=== PATIENT | male | born 1980 | race Caucasian/White ===

== ENCOUNTER 2017-03-20 09:31 | Emergency (ER) | payer OTHER ==
[~2017-03-20] VITALS: Ht 172.7 cm; Wt 107.0 kg
[2017-03-20 09:48] VITALS: BP 130/80; PULSE 64; RESP 20; O2SAT 96
[2017-03-20 10:11] LABS: BASOPHILS % (AUTO) 0.6 % (0-3); EOSINOPHILS % (AUTO) 3.4 % (0-5); MONOCYTES % (AUTO) 6.7 % (4-12); Mean Corpuscular Hemoglobin 31.1 pg (27.0-35.0); Mean Corpuscular Volume 87.8 fL (81-100); NEUTROPHILS % (AUTO) 53.4 % (40-74); Platelet Count 199 bil/L (150-400)
[2017-03-20 10:22] LABS: Magnesium 1.9 mg/dL (1.6-2.6)
[2017-03-20] MEDS ORDERED: Ondansetron 2 mg/mL 2 mL Inj IVPUSH ONE (10:40)
[2017-03-20] MEDS: HYDROmorphone 0.5 mg/0.5 mL iSecure Syringe IVPUSH PRN ×2 (10:43→10:51)
--- NOTE | 2017-03-20 10:46 | ED.REPORT ---
HPI-Abd Pain M Under 40 Date of Service March 20, 2017 ED Provider: Dr. Franz 36 y/o male with no reported hx presents to the ED complaining of non-radiating dull abdominal pain, onset 4 hours ago. Associated sx include severe cough. He has never experienced similar sx before. Nursing Notes Stated Complaint: ABD PAIN Chief Complaint: Male Abdominal Pain Nursing Notes Reviewed: Yes ([employer], meds not reconciled) Allergies: Coded Allergies: No Known Allergies (Unverified , 03/20/17) General Time Seen by MD: 10:45 Chief Complaint Abdominal pain Hx Obtained From: Patient Arrived By: Walk-in Sudden in Onset?: Yes Onset Occurred: 1 - 4 hours ago Symptom Duration: Since onset Location: : Periumbilical Quality: Painful Radiation: : Does not radiate Severity: Current: Severe Severity: Maximum: Severe Recent Healthcare: No recent doctor visit Similar Sx Previous: No Past Medical History Past Medical History none reported Past Surgical History none reported Smoking History Unknown if Ever Smoker Social History Alcohol Use: "Social" Other Social History: Good social support Ambulatory Status Independent Review of Systems Respiratory: Reports: Non-productive cough GI: Reports: Abdominal pain Complete sys rev & neg: except as marked. Physical Exam Initial Vital Signs Vital Signs (First) Date Time Temp Pulse Resp B/P Pulse Ox O2 Delivery O2 Flow Rate FiO2 03/20/17 09:48 35.8 64 20 130/80 96 Room Air Initial VS: Reviewed, Vital signs normal Head / Eyes: Atraumatic, Normocephalic, PERRL Neck: Supple, Non-tender, Full range of motion Extremities: Vascular intact, Neuro intact, No swelling, No tenderness Skin: Warm, Dry, No cyanosis Neurologic: Alert, Oriented, Nonfocal General/Constitutional: Awake, Alert, Cooperative Distress / Hydration: Positive: Distress severe Respiratory / Chest: Atraumatic, Breath sounds NL, Breath sounds = bilat, No respiratory distress, No rales, No rhonchi, No wheezing Cardiovascular: Heart rate NL, Regular rhythm, Heart sounds NL, No gallop, No murmurs, No rubs Abdomen: Atraumatic Organomegaly / Mass / Hernia: Positive: Hernia umbilical Severe pain. Palpable two inch incarcerated umbilical hernia which was manually reduced Back: Atraumatic, Full range of motion Interpretation & Diagnostics Interpretation & Diagnostics: Pulmonary tech ultrasound report, reduced umbilical hernia Lab Results Interpretation Result Diagram: 03/20/17 1007 03/20/17 1007 Test 03/20/17 10:07 White Blood Count 4.9th/mm3 (3.8-10.1) Red Blood Count 5.41mil/mm3 (4.40-5.80) Hemoglobin 16.8g/dL (13.8-17.2) Hematocrit 47.5% (41.0-50.0) Mean Corpuscular Volume 87.8fL (81-100) Mean Corpuscular Hemoglobin 31.1pg (27.0-35.0) Mean Corpuscular Hemoglobin Concent 35.4% (32.0-37.0) Red Cell Distribution Width 12.8% (12.3-15.4) Platelet Count 199bil/L (150-400) Neutrophils (%) (Auto) 53.4% (40-74) Lymphocytes (%) (Auto) 35.7% (14-46) Monocytes (%) (Auto) 6.7% (4-12) Eosinophils (%) (Auto) 3.4% (0-5) Basophils (%) (Auto) 0.6% (0-3) Sodium Level 141mEq/L (134-144) Potassium Level 4.4mEq/L (3.5-5.2) Chloride Level 105mEq/L (97-108) Carbon Dioxide Level 22mmol/L (18-29) Blood Urea Nitrogen 14mg/dL (6-20) Creatinine 0.57mg/dL (0.76-1.27) Estimat Glomerular Filtration Rate 170mL/min (>59) Glucose Level 111mg/dL (60-99) Calcium Level 9.3mg/dL (8.5-10.1) Magnesium Level 1.9mg/dL (1.6-2.6) Total Bilirubin 0.8mg/dL (0.0-1.2) Aspartate Amino Transf (AST/SGOT) 34U/L (0-50) Alanine Aminotransferase (ALT/SGPT) 53U/L (0-44) Alkaline Phosphatase 55U/L (25-150) Total Protein 7.5g/dL (6.4-8.4) Albumin 4.4g/dL (3.4-5.0) Lipase 17U/L (13-60) Lab Results Interpretation: CBC normal CMP normal Re-Eval/Medical Decision Med Decision/Clinical Course This is a 36-year-old male who presents with acute periumbilical abdominal pain that started this morning. He has had a cough over the past few months, is not had prior history with a known umbilical hernia, seen at urgent care and referred to the ED due to severity of pain. The patient is in significant pain, not clinical exam has a palpable tense but small roughly 4 cm periumbilical hernia. I IV placed received titrated pain medicine and I was able to manually reduce the hernia with relief of symptoms. Ultrasound demonstrated complete reduction, but there is a sliding umbilical hernia present. Labs are normal. He is observed, he demonstrate no signs of bowel ischemia. Case discussed with the on-call surgeon to facilitate follow-up. The patient's and partner are counseled on the nature of umbilical hernias. Routine care, return precautions were reviewed. Patient's discharget asymptomatic in good condition Source of Hx: Old records Consultation : Referral / Consult Name: Amari Royal MD Consulted With: Surgeon Call Returned at: 12:16 Rn Admissions: Will see in office, Agrees with eval, Agrees with plan Note: Dr. Royal agrees with the plan and recommends the pt be discharged with instruction to follow up with him. Differential Diagnosis: Positive: Hernia (incarcerated umbilical), Negative: C. diff colitis, Diabetic ketoacidosis, Esophageal rupture, Esophagitis, Gastroenteritis, Sickle cell crisis, Stab wound abdomen, Trauma, abdominal Counseled Regarding: Diagnosis, Lab results, Need for follow-up, When/why to return to ED Patient Discharge & Departure Primary Impression: Incarcerated umbilical hernia Disposition: Home Discharge Condition All VS Reviewed: Yes Condition: Stable Referrals: [facility] Scribe Attestation Portions of this note were transcribed by Robby Novoa. I, Dr. Franz, personally performed the history, physical exam and medical decision-making;I reviewed and confirmed the accuracy of the information in the transcribed note. Signed by Ernie Guillaume. 03/20/17 1257 copies to: [facility] Murali Franz MD March 20, 2017 10:46 Robby Novoa March 20, 2017 10:54
[2017-03-20 11:47] VITALS: BP 111/69; PULSE 63; RESP 18; O2SAT 95
[2017-03-20 13:36] VITALS: BP 105/68; PULSE 59; RESP 18; O2SAT 97
--- NOTE | 2017-03-20 16:05 | DRSVH ---
PROCEDURE: US ABDOMEN, LIMITED ([id number]) INDICATIONS: inguina TECHNIQUE: Real-time focused scanning was performed of the abdomen, with image documentation. COMPARISON: None. FINDINGS: Reducible fat and bowel containing periumbilical hernia is present. IMPRESSION: Reducible periumbilical hernia. Dictated by: Daniel NARAYAN Interpreted: Meliza Sun MD on 03/20/2017 at 16:04 Transcribed by: KHANH on 03/20/2017 at 16:05 Approved by: Meliza Sun MD, PhD on 03/20/2017 at 16:35
== END 2017-03-20 13:30 | disposition home or self-care (01) ==
LOC: SED 09:31
DX: K42.0 Umbilical hernia with obstruction, without gangrene (principal)
CPT/HCPCS: 36415; 76705; 80053; 83690; 83735; 85025; 96374; 96375; 99285; J1170; J2405

== ENCOUNTER 2017-04-05 08:27 | Day surgery (SDC) | payer OTHER ==
[2017-04-05] VITALS (10 sets, daily range): BP systolic 105–121; BP diastolic 68–83; PULSE 67–83; RESP 13–17; O2SAT 92–96
[~2017-04-05] VITALS: Ht 172.7 cm; Wt 106.4 kg
--- NOTE | 2017-04-05 07:55 | PCM.HPANE ---
Patient Data Surgeon Admitting Provider: Attending Provider:Michael Elaine MD Primary Care Physician:Martin Other Provider:Durga Stratton Anesthesia Reason for Visit Umbilical Hernia Ht/WT & BMI Height (Feet): 5 Height (Inches): 8 Weight (Kilograms): 104.326 Body Mass Index 34.00 Allergies Coded Allergies: No Known Allergies (Unverified , 04/04/17) Past Anesthesia History Anesthesia History: Denies:: Abnormal Airway, Anesthesia Reactions, Difficult Intubation, Malignant Hyperthermia Diabetes History Hx Diabetes?: No MRSA MRSA: No Medications Hypertension Medication: No Home Meds Incl Beta Elkin: No No Active Prescriptions or Reported Meds History History of ENT Problems?: No HEENT History: Denies:: Abnormal Airway Difficult Intubation Denture Type: None Teeth Condition: Within Normal Limits Hx of Heart Problems?: No Cardiovascular History: Denies:: Congestive Heart Failure Heart Murmur Hypertension Hx of Respiratory Problem?: No Respiratory History: Denies:: Tuberculosis Use of C-PAP Machine Hx Neurologic Problems?: No Hx of GI Problems?: Yes Other GI Pertinent History: S/P LT INGUINAL HERNIA RPR UMBILICAL HERNIA=CURRENT PROBLEM C/OF ABD PAIN Hx of Problems?: No Male Hx: Denies:: Prostate Problems Scrotal Mass Testicular Surgery Skin History: Denies:: History Skin Disorders? Pressure Ulcers Hx Musculoskeletal Problems?: No Hx of Psycho/Social Problems?: No Hx Surgeries?: Yes (LT INGUINAL HERNIA RPR) Hx Any Other Health Problems?: Yes Other History: Denies:: Cancer Endocrine Disease Hospitalization Thyroid Disease Hx Diabetes: No Hx Alcohol Use: YesAlcoholic Drinks Per Day: 1 PINT BEER DAILYHx Substance Use : No Smoking Status: Unknown if Ever Smoker Have You Smoked inLast 12 mo: No Stop/Bang Treated for Sleep Apnea?: No Do You Have a CPAP Machine?: No S-Snoring: Do You Snore Loudly: No T-Tired: feel tired, fatigued: No O-Obsered: Observed not breath: No P-Blood Pressure: treated: No B- Body Mass Index > 35 kg/m2: No A- Age over 50: No N- Neck Large Circumference: Yes G- Gender Male: Yes JOON Total Score: 2 JOON Risk Assessment: Low Risk, <3 Yes Risk Assessment Category Category 1A: Patient has history of documented sleep apnea, and HAS NOT received any narcotic, sedative or anesthesia administration during this stay. Category 1B: Patient has history of documented sleep apnea, and HAS received any narcotic , sedative or anesthesia administration during this stay Category 2: Patient has SUSPECTED Obstructive Sleep Apnea, and HAS received any narcotic , sedative or anesthesia administration during this stay. Category 3: Patient has SUSPECTED Obstructive Sleep Apnea and HAS NOT received narcotic, sedative or anesthesia administration during this stay. Category 4: Outpatient in Procedural Areas with known sleep apnea or who screen positive for High Risk via the STOP/BANG questionnaire. Exam Exam General Appearance: Alert, Oriented X3, Cooperative, No Acute Distress HEENT/AIRWAY: MP 2 Lungs: Clear to Auscultation, Normal Air Movement Heart: Exam Unremarkable, Regular Rate/Rhythm, No Murmurs/Rubs/Gallops Plan Impression Patient chart reviewed, patient interviewed and anesthestic plan with risks, benefits, and alternatives discussed, and informed consent obtained. ASA Physical Status: ASA2 Mod Systemic Disease Anesthetic Plan: GA Bene/Risks/Altern/Consents: Yes HP Complete Prior to Induction: Yes Santi Mckinney MD Apr 05, 2017 07:55
[~2017-04-05 08:27] MED LIST: CeFAZolin Inj 2,000 MG in Dextrose 5%-Pha MIX 50 ML IV SCH
[2017-04-05] MEDS ORDERED: Propofol 10,000 mCg/mL 20 mL Inj ONE (08:28)
[2017-04-05] MEDS ORDERED: Ondansetron 2 mg/mL 2 mL Inj ONE (08:28)
[2017-04-05] MEDS ORDERED: Ketamine 10 mg/mL 20 mL Inj ONE (08:28)
[2017-04-05] MEDS ORDERED: Dexamethasone 4 mg/mL Inj ONE (08:28)
[2017-04-05] MEDS ORDERED: fentaNYL-PF 50 mCg/mL 2 mL Inj ONE (08:28)
[2017-04-05] MEDS: Lactated Ringer's 1,000 ML IV SCH ×3 (09:17→11:07)
[2017-04-05] MEDS ORDERED: Lactated Ringer's 1,000 ML IV SCH (10:11)
[2017-04-05] MEDS ORDERED: Lactated Ringer's 500 ML IV PRN (10:11)
[2017-04-05] MEDS ORDERED: Dexamethasone 4 mg/mL Inj IVPUSH PRN (10:15)
[2017-04-05] MEDS ORDERED: EPHEDrine Sulfate 50 mg/mL Inj IVPUSH PRN (10:15)
[2017-04-05] MEDS ORDERED: Ondansetron 2 mg/mL 2 mL Inj IVPUSH PRN (10:15)
[2017-04-05] MEDS ORDERED: fentaNYL-PF 50 mCg/mL 2 mL Inj IVPUSH PRN (10:15)
[2017-04-05] MEDS ORDERED: MetoCLOpramide 5 mg/mL 2 mL Inj IVPUSH PRN (10:15)
[2017-04-05] MEDS ORDERED: Phenylephrine 10,000 mCg/mL Inj IVPUSH PRN (10:15)
[2017-04-05] MEDS ORDERED: HYDROmorphone 1 mg/mL Inj IVPUSH PRN (10:15)
[2017-04-05] MEDS ORDERED: Bupivacaine-MPF 0.25% 30 mL Inj INFILTRATE ONE (10:32)
--- NOTE | 2017-04-05 11:31 | OP ---
[address] [address] OPERATIVE REPORT PATIENT: TYRA RZAA : 1980 MR#: [id number] ADMIT: 04/05/2017 JOB ID: [id number] DATE OF SURGERY: 04/05/2017 ANESTHESIA: General. PREOPERATIVE DIAGNOSIS(ES): Symptomatic umbilical hernia. POSTOPERATIVE DIAGNOSIS(ES): Symptomatic umbilical hernia. OPERATIVE PROCEDURE: Open repair of umbilical hernia using mesh. SURGEON: Michael Elaine MD WELFARE ADMINISTRATOR: James Van PA-C (Packaging Mechanic was required for the safe and timely completion of the case.) COMPLICATIONS: None. ESTIMATED BLOOD LOSS: Less than 5 mL. CONDITION: Satisfactory. SPECIMEN: None. FINDINGS: There is an approximately 1 to 1.5 cm fascial defect. I elected to repair this with a 4.3 cm Ventralex patch given the patient's obesity and his work which involves lots of heavy lifting. INDICATIONS/SIGNIFICANT HISTORY: The patient is a 36-year-old man who developed acute onset of periumbilical pain and a lump. He went to the urgent care clinic and was diagnosed with incarcerated umbilical hernia. This required transfer to the ER for reduction. He was thereafter referred to me and elected to undergo operative repair on an elective basis. OPERATIVE TECHNIQUE: The patient was taken to the operating room and placed in supine position. General anesthesia was administered. Perioperative antibiotics were given. The abdomen was prepped and draped in standard surgical fashion. A procedure pause performed. An infraumbilical curvilinear incision was made. Dissection was carried down through skin and subcutaneous tissue. The umbilical stalk was circumferentially dissected free and then transected. The hernia sac contained incarcerated omentum. This was reduced. The anterior and posterior fascia was then cleared around the defect. The defect was only about 1.5 cm, but given his obesity and work, I elected to place a small Ventralex patch. This was placed in a sublay fashion. I then incorporated the mesh into a horizontal closer with interrupted 2-0 Prolene sutures. I then went to tack down the umbilicus. It turns out at the very base of the umbilicus there was a small hole in the skin. I repaired this with 4-0 Monocryl. I then tacked down the umbilicus to the fascia using 3-0 PDS. The 3-0 PDS deep dermal was placed followed by a running 4-0 Monocryl. Local anesthetic was injected. The entire procedure was well tolerated without complication.
[2017-04-05] MEDS ORDERED: Lactated Ringer's 1,000 ML IV ONE (11:50)
[2017-04-05] MEDS: HYDROcodone-APAP 5-325 mg Tablet PO PRN ×2 (11:55→12:50)
--- NOTE | 2017-04-05 12:23 | PCM.ANEP1 ---
Post Anesthesia PACU Phase 1 Assessment Vital Signs Vital Signs Date Time Temp Pulse Resp B/P Pulse Ox O2 Delivery O2 Flow Rate FiO2 04/05/17 11:50 67 14 119/75 94 Room Air 04/05/17 11:39 68 15 115/76 94 Room Air 04/05/17 11:25 69 13 117/68 92 Room Air 04/05/17 11:20 72 17 121/81 93 Room Air 04/05/17 11:15 83 16 118/83 96 Simple Mask 10 04/05/17 11:10 36.6 80 17 121/78 96 Simple Mask 10 04/05/17 09:00 36.3 72 16 113/70 95 Room Air Anesthetic Administered: GA Level of Alertness: Sleepy, easy to arouse MCCULLOUGH's with Equal Strength: Yes Pain: No Nausea or Vomiting: No CV Function & Hydration Stable: Yes Airway Device: Oralpharangeal Airway Oxygen Delivery: Simple Mask Lungs: Clear to Auscultation, Normal Air Movement Dermatome Level: Full Sensation PACU Phase 2 Assessment Complications: No Follow up Care: No Patient Instructions Provided: N/A Santi Mckinney MD Apr 05, 2017 12:23
== END 2017-04-05 23:59 | disposition home or self-care (01) ==
LOC: SAS 08:27
PROVIDERS: ATTEND General Practice
DX: K42.9 Umbilical hernia without obstruction or gangrene (principal); Z72.89 Other problems related to lifestyle
CPT/HCPCS: 49585; C1781; J0690; J1100; J2405; J3010; J7120